=== PATIENT | male | born 2000 | race American Indian/Alaskan Native ===

== ENCOUNTER 2020-03-08 11:02 | Emergency (ER) | payer SELFPAY ==
--- NOTE | 2020-03-08 13:26 | Emergency Department Report ---
Blank Doc - Documentation Documentation: 19-year-old male that presents with right sided inguinal hernia pain and hemau heidi. This initial assessment/diagnostic orders/clinical plan/treatment(s) is/are subject to change based on patient's health status, clinical progression and re- assessment by fellow clinical providers in the ED. Further treatment and workup at subsequent clinical providers discretion. Patient/guardians urged not to elope from the ED as their condition may be serious if not clinically assessed and managed. Initial orders include: 1- Patient sent to [facility] for further evaluation and treatment 2- UA
--- NOTE | 2020-03-08 17:52 | Emergency Department Report ---
ED Abdominal Pain HPI - General Chief Complaint: Urogenital-Male Stated Complaint: ABD PAIN Time Seen by Provider: 03/08/20 13:25 Source: patient Mode of arrival: Ambulatory Limitations: No Limitations - History of Present Illness Initial Comments: 19-year-old male presents to ED with abdominal pain x3 days. Patient states pain is in the suprapubic area. States that yesterday he noticed some blood after he finished urinating. Patient reports he had a right inguinal hernia but states, "That's not the problem today." States pain is not in the right lower quadrant. Patient denies any fever, nausea or vomiting, diarrhea, urinary frequency, back pain, penile discharge. Patient reports some dysuria that he states has been going on for "a while." MD Complaint: abdominal pain -: days(s) (3) Location: suprapubic Radiation: none Migration to: no migration Severity: mild Quality: cramping Consistency: intermittent Improves With: nothing Worsens With: nothing Associated Symptoms: dysuria, hematuria. denies: nausea, vomiting, diarrhea, fever - Related Data Previous Rx's Medication Instructions Recorded Last Taken Type Phenazopyridine [Pyridium] 200 mg PO TID #6 tab 03/08/20 Unknown Rx Sulfamethoxazole/Trimethoprim 1 each PO BID 3 Days #6 tablet 03/08/20 Unknown Rx [Bactrim DS TAB] Allergies Allergy/AdvReac Type Severity Reaction Status Date / Time No Known Allergies Allergy Unverified 03/08/20 20:30 ED Review of Systems ROS: Stated complaint: ABD PAIN Other details as noted in HPI Comment: All other systems reviewed and negative Constitutional: denies: chills, fever Gastrointestinal: abdominal pain. denies: nausea, vomiting, diarrhea Genitourinary: dysuria, hematuria Musculoskeletal: denies: back pain ED Past Medical Hx - Past Medical History Previous Medical History?: Yes Additional medical history: hernia - Surgical History Past Surgical History?: No - Medications Home Medications: Home Medications Medication Instructions Recorded Confirmed Last Taken Type Phenazopyridine [Pyridium] 200 mg PO TID #6 tab 03/08/20 Unknown Rx Sulfamethoxazole/Trimethoprim 1 each PO BID 3 Days #6 tablet 03/08/20 Unknown Rx [Bactrim DS TAB] ED Physical Exam - General Limitations: No Limitations General appearance: alert, in no apparent distress - Head Head exam: Present: atraumatic, normocephalic - Eye Eye exam: Present: normal appearance, EOMI - ENT ENT exam: Present: mucous membranes moist - Neck Neck exam: Present: normal inspection - Respiratory Respiratory exam: Present: normal lung sounds bilaterally. Absent: respiratory distress - Cardiovascular Cardiovascular Exam: Present: normal rhythm, bradycardia - GI/Abdominal GI/Abdominal exam: Present: soft, tenderness (mild suprapubic). Absent: distended - Extremities Exam Extremities exam: Present: normal inspection - Neurological Exam Neurological exam: Present: alert, oriented X3 - Psychiatric Psychiatric exam: Present: normal affect, normal mood - Skin Skin exam: Present: warm, dry, intact, normal color ED Course Vital Signs 03/08/20 12:20 Temperature 98.0 F Pulse Rate 59 L Respiratory 18 Rate Blood Pressure 112/74 O2 Sat by Pulse 99 Oximetry ED Medical Decision Making - Medical Decision Making 19-year-old male presents to ED with suprapubic pain, dysuria, hematuria. Patient does have a UTI on UA. Prescriptions given. Will discharge home at this time. Outpatient follow-up advised, return precautions given. - Differential Diagnosis UTI Critical care attestation.: If time is entered above; I have spent that time in minutes in the direct care of this critically ill patient, excluding procedure time. ED Disposition Clinical Impression: UTI (urinary tract infection) Disposition: TO HOME OR SELFCARE Is pt being admited?: No Condition: Stable Instructions: Urinary Tract Infection in Men (ED) Prescriptions: Sulfamethoxazole/Trimethoprim [Bactrim DS TAB] 1 each PO BID 3 Days #6 tablet Phenazopyridine [Pyridium] 200 mg PO TID #6 tab Referrals: Charleen PEREZ [Other] - 3-5 Days [facility] [Provider Group] - 3-5 Days Time of Disposition: 20:20
[2020-03-08 19:59] LABS: Bilirubin,Urine NEG (Negative); Blood,Urine MOD (Negative); Color,Urine Yellow (Yellow); Mucus,Urine 3+ /HPF; Urobilinogen,Urine < 2.0 mg/dL (<2.0)
[2020-03-08 20:00] LABS: RBC,Urine > 182.0 /HPF (0.0-6.0)
[2020-03-09 07:44] VITALS: BP 142/77
== END 2020-03-08 20:34 | disposition home or self-care (01) ==
LOC: ED 11:02
DX: N39.0 Urinary tract infection, site not specified (principal); R31.9 Hematuria, unspecified; Z79.899 Other long term (current) drug therapy
CPT/HCPCS: 81001